=== PATIENT | male | born 1995 | race Caucasian/White ===

== ENCOUNTER 2024-10-05 03:08 | Emergency (ER) | payer OTHER, SELFPAY ==
[2024-10-05 02:40] VITALS: BMI 23.9
[2024-10-05 03:10] VITALS: BMI 23.9
--- NOTE | 2024-10-05 03:30 | ED.GENMED ---
History of Present Illness
General
Chief Complaint: Abdominal Symptoms
Source: patient
Exam Limitations: none
Nursing documentation reviewed up to this point in time: agreed with
History of Present Illness
History of Present Illness:
Patient presents to ED secondary to sudden onset of multiple episodes of vomiting and diarrhea starting last night. Denies fever or chills. Denies abdominal pain. Denies chest pain or shortness of breath. Denies dizziness. Denies weakness.
Denies sick contact. Denies recent travel.
Past History
Past History
ED Past Medical History: None
ED Past Surgical History: None
Social History
Tobacco: Non-smoker
Review of Systems
Review of Systems
Allergies reviewed?: Yes
All Other Systems: ROS reviewed and negative except as documented in HPI and ROS
Constitutional: Reports no symptoms
Respiratory: Reports no symptoms
Cardiac: Reports no symptoms
ABD/GI: Reports vomiting and diarrhea; Denies abdominal pain
Musculoskeletal: Reports no symptoms
Skin: Reports no symptoms
Neurological: Reports no symptoms
Phy Exam
Physical Exam
Physical Exam:
Physical Exam
General: mild distress, not acutely ill. afebrile
Head: nc/at. eomi
Neck: supple. no meningeal signs.
Heart: s1/s2 regular rate and rhythm, no murmur. equal radial pulses.
Lungs: no acute respiratory distress. clear bilaterally
Abdomen: normal bowel sounds. not tender. no distention
Neuro: alert and oriented. no focal neurological deficits
Skin: no rash
Psychiatric: well kept. interactive and cooperative
Extremities: no edema. no calf tenderness.
Course
Orders/Labs/Results
Orders:
Orders
10/05/24 03:31
0.9% Sodium Chloride 1000 ml [Nss] 1,000 ml IV BOLUS
Ondansetron Injectable [Zofran] 4 mg IV NOW STA
Pantoprazole [Protonix IV] 40 mg IV NOW STA
10/05/24 03:37
Complete Blood Count/With Diff Urgent
Comprehensive Metabolic Panel Urgent
Magnesium Urgent
10/05/24 05:06
Ondansetron Orally Disint [Zofran Odt (Orally Disintegrating)] 4 mg PO NOW STA
Abnormal Lab Results
10/05/24
03:37
WBC 11.7 H 10^3/uL
(4.8-10.8)
MCH 32.3 H pg
(27.0-31.0)
MPV 10.8 H fL
(7.4-10.4)
Absolute Neuts (auto) 10.7 H 10^3/uL
(1.4-6.5)
Absolute Lymphs (auto) 0.4 L 10^3/uL
(1.2-3.4)
Neutrophils % 91.7 H %
(42.2-75.2)
Lymphocytes % 3.8 L %
(20.5-51.1)
BUN 24 H mg/dl
(9-20)
Glucose 143 H mg/dl
(70-99)
Total Bilirubin 1.5 H mg/dl
(0.2-1.3)
Albumin 5.2 H g/dl
(3.5-5.0)
10/05/24 03:37
10/05/24 03:37
Vital Signs
Initial and Last Documented VS:
Initial Vital Signs
Temp Pulse Resp BP Pulse Ox
98.1 F 85 18 123/71 99
10/05/24 03:40 10/05/24 03:40 10/05/24 03:40 10/05/24 03:40 10/05/24 03:40
Last Documented Vital Signs
Temp Pulse Resp BP Pulse Ox
98.1 F 79 16 118/69 98
10/05/24 03:40 10/05/24 04:56 10/05/24 04:56 10/05/24 04:56 10/05/24 04:56
MDM/Problems Addressed
MDM/Problems Addressed:
History and exam consistent with likely nonspecific gastroenteritis, likely viral. Patient reports improvement in symptoms after treatment. Patient without any further vomiting episodes after treatment. As such, patient will be discharged home in
stable condition, with recommendation to continue hydration at home, along with PCP follow-up as needed.
*Critical Care Note
Total Time (30-74mins, 75-104mins- exclusive of procedures): Not Applicable
ED Attending Note
-
Portions of this chart may have been created with voice recognition software.� Occasional wrong word or��sound alike� substitutions may have occurred due to the inherent limitations of voice recognition software.
Discharge Plan
Departure
Patient Disposition: Home (Routine Discharge)
Date of Disposition: 10/05/24
Time of Disposition: 05:06
Patient with high blood pressure during this ER visit?: Yes
Condition: Good
Discharge Problem:
Gastroenteritis
Instructions: Viral gastroenteritis in adults
Prescriptions:
New
ondansetron 4 mg Tablet,Disintegrating
4 mg PO TIDPRN PRN (Reason: nausea/vomiting) Qty: 12 0RF
Referrals:
NONE,* [Family Provider] -
Activity Restrictions/Additional Instructions:
As discussed, please follow-up with your primary care physician with any further concerns. Your prescription has been sent electronically to [facility] pharmacy in [place].
Interventions
Interventions:
*Risk Screen - Suicide Last Done: 10/05/24 02:40
*General Assessment Last Done: 10/05/24 02:40
*Neglect/Abuse Screening Last Done: 10/05/24 02:40
ED- Fall Risk Assessment Last Done: 10/05/24 02:40
*ED COVID-19 Vaccine History Last Done: 10/05/24 02:40
*Nursing Disposition Last Done: 10/05/24 05:13
ME-Acfxgk-Bulfmcaiwh Assessment Last Done: 10/05/24 02:40
Discharge Date and Time
Discharge Date/Time: 10/05/24 05:19
Print Language: URDU
[2024-10-05] MEDS: ZOFRAN 4 MG IV (03:38)
[2024-10-05] MEDS: PROTONIX IV 40 MG IV (03:38)
[2024-10-05] MEDS: NSS 1000 IV (03:38)
[2024-10-05 03:40] VITALS: BP 123/71
[2024-10-05 03:59] LABS: % Basophils 0.2 % (0-2); % Eosinophils 0.3 % (0-6); % Immature Granulocytes 0.3 % (0-0.5); % Lymphocytes 3.8 % (20.5-51.1); % Monocytes 3.7 % (1.7-9.3); % Neutrophils 91.7 % (42.2-75.2); Absolute Lymphocytes 0.4 10^3/uL (1.2-3.4); Absolute Monocytes 0.4 10^3/uL (0.1-0.6); Absolute Neutrophils 10.7 10^3/uL (1.4-6.5); Hematocrit 43.4 % (39.0-52.0); Hemoglobin 15.4 g/dL (13.0-18.0); Mean Corp Hgb Conc. 35.5 g/dL (33.0-37.0); Mean Corpuscular Hgb 32.3 pg (27.0-31.0); Mean Platelet Volume 10.8 fL (7.4-10.4); Nucleated Red Blood Cells % 0 % (-); Platelet Count 214 10^3/uL (130-400); Red Blood Cell Count 4.77 10^6/uL (4.70-6.10); Red Cell Dist. Width 11.8 % (11.5-14.5); White Blood Cell Count 11.7 10^3/uL (4.8-10.8)
[2024-10-05 04:19] LABS: ALT (SGPT) 24 U/L (0-50); AST (SGOT) 34 U/L (17-59); Albumin 5.2 g/dl (3.5-5.0); Alkaline Phosphatase 51 U/L (38-126); Blood Urea Nitrogen 24 mg/dl (9-20); Calcium 9.6 mg/dl (8.4-10.2); Carbon Dioxide 25 mmol/L (22-30); Chloride 100 mmol/L (98-107); Estimated Creatinine Clearance > 125 ml/min; Glucose 143 mg/dl (70-99); Potassium 4.4 mmol/L (3.5-5.1); Sodium 138 mmol/L (135-145); Total Bilirubin 1.5 mg/dl (0.2-1.3); Total Protein 7.7 g/dl (6.3-8.2); eGFR > 60.00
[2024-10-05 04:56] VITALS: BP 118/69
[2024-10-05] MEDS: ZOFRAN ODT (ORALLY DISINTEGRATING) 4 MG PO (05:11)
== END 2024-10-05 05:19 | disposition home or self-care (01) ==
LOC: EMR 03:08
PROVIDERS: EMERGENCY PHYSICIAN Emergency Medicine
DX: K52.9 Noninfective gastroenteritis and colitis, unspecified (principal)
CPT/HCPCS: 99283; 80053; 83735; 85025